=== PATIENT | female | born 1935 ===

== ENCOUNTER 2017-07-03 14:48 | Inpatient (IN) | payer OTHER ==
[2017-07-03] MEDS: SOD CHLORIDE 0.9% 1,000 ML IV ×5 (15:28→23:00)
[2017-07-03 15:33] LABS: ADD MAN DIFF? NO
[2017-07-03 15:37] LABS: BASOPHIL # 0.1 10^3/ul (0.0-0.1); BASOPHILS % 0.4 % (0.0-2.0); EOSINOPHILS # 0.2 10^3/ul (0.0-0.5); EOSINOPHILS % 1.2 % (0.0-7.0); HEMATOCRIT 35.3 % (37.0-47.0); HEMOGLOBIN 10.7 g/dl (12.0-16.0); LYMPHOCYTES # 1.4 10^3/ul (0.8-2.9); LYMPHOCYTES % 8.2 % (15.0-51.0); MEAN CORPUSCULAR HGB CONC 30.3 g/dl (32.0-37.0); MEAN CORPUSCULAR VOLUME 88.9 fl (82.0-101.0); MEAN PLATELET VOLUME 9.6 fl (7.4-10.4); MONOCYTE # 0.7 10^3/ul (0.3-0.9); MONOCYTES % 4.2 % (0.0-11.0); NEUTROPHIL # 14.8 10^3/ul (1.6-7.5); NEUTROPHILS % 85.1 % (39.0-77.0); PLATELET COUNT 521 10^3/UL (140-415); RED BLOOD COUNT 3.97 10^6/ul (4.20-5.40); RED CELL DISTRIBUTION WIDTH 14.1 % (11.5-14.5)
[2017-07-03 15:37] LABS: WHITE BLOOD COUNT 17.4 10^3/ul (4.8-10.8)
[2017-07-03 15:59] LABS: ALANINE AMINOTRANSFERASE 128 IU/L (13-69); ALBUMIN 3.5 g/dl (3.3-4.9); ALBUMIN/GLOBULIN RATIO 0.77; ALKALINE PHOSPHATASE 177 IU/L (42-121); ANION GAP 25 (8-16); ASPARTATE AMINO TRANSFERASE 261 IU/L (15-46); BILIRUBIN,INDIRECT 0.3 mg/dl (0-1.1); BILIRUBIN,TOTAL 0.3 mg/dl (0.2-1.3); BLOOD UREA NITROGEN 54 mg/dl (7-20); CARBON DIOXIDE 22 mmol/L (21-31); CHLORIDE 117 mmol/L (97-110); CREATININE 1.84 mg/dl (0.44-1.00); GLUCOSE 203 mg/dl (70-220); LIPASE 116 U/L (23-300); POTASSIUM 4.7 mmol/L (3.5-5.1); SODIUM 159 mmol/L (135-144)
[2017-07-03 16:00] LABS: PROTIME 18.4 Sec (11.9-14.9); PT RATIO 1.4
[2017-07-03 16:09] LABS: CALCIUM 13.6 mg/dl (8.4-10.2)
[2017-07-03 16:11] LABS: TROPONIN-I 0.034 ng/ml (0.00-0.12)
[2017-07-03 16:35] LABS: ADD UMIC YES; UR ASCORBIC ACID NEGATIVE (NEGATIVE); UR BILIRUBIN (Dip) NEGATIVE (NEGATIVE); UR BLOOD (Dip) NEGATIVE (NEGATIVE); UR CLARITY CLEAR (CLEAR); UR COLOR YELLOW (YELLOW); UR GLUCOSE (Dip) NEGATIVE (NEGATIVE); UR KETONES (Dip) NEGATIVE (NEGATIVE); UR LEUKOCYTE ESTERASE (Dip) NEGATIVE Leu/ul (NEGATIVE); UR NITRITE (Dip) NEGATIVE (NEGATIVE); UR RBC 0 /HPF (0-5); UR SPECIFIC GRAVITY (Dip) 1.019 (1.003-1.030); UR TOTAL PROTEIN (Dip) 1+ mg/dl (NEGATIVE); UR UROBILINOGEN (Dip) NEGATIVE (NEGATIVE); UR WBC 0 /HPF (0-5)
[2017-07-03] MEDS: CEFEPIME 1GM/50 ML (PMX) 50 ML IVPB (16:55)
[2017-07-03] MEDS: VANCOMYCIN 1 GM (PMX) 250 ML IVPB (17:16)
[2017-07-03 17:27] LABS: PARTIAL THROMBOPLASTIN TIME 28.6 Sec (25.0-35.0)
[2017-07-03 17:44] LABS: LACTIC ACID 2.9 mmol/L (0.5-2.0)
[2017-07-03] MEDS ORDERED: CALCITONIN SALMON 400 UNITS INJ SC (19:00)
[2017-07-03] MEDS ORDERED: GUAIFENESIN 20 MG/ML 5ML CUP PO (19:30)
[2017-07-03] MEDS ORDERED: BISACODYL (EC) 5 MG TAB PO (19:30)
[2017-07-03] MEDS ORDERED: LORAZEPAM 1 MG TAB PO (19:30)
[2017-07-03] MEDS ORDERED: ATROPINE 1% 3.5 GM OPH OINT BOTH EYES (19:30)
[2017-07-03] MEDS ORDERED: NACL 0.9% 3 ML SYG IV (19:30)
[2017-07-03] MEDS ORDERED: morphine LIQ (10 MG/5 ML) CUP PO (19:30)
[2017-07-03] MEDS ORDERED: HYDROCODONE/APAP (5/325) TAB PO (19:30)
[2017-07-03] MEDS ORDERED: DOCUSATE SODIUM 100 MG CAP PO (19:30)
[2017-07-03] MEDS ORDERED: BISACODYL 10 MG SUPP PR ×2 (19:30)
[2017-07-03] MEDS ORDERED: MAGNESIUM HYDROXIDE 30ML CUP PO (19:30)
[2017-07-03] MEDS ORDERED: IBUPROFEN 600 MG TAB PO (19:30)
[2017-07-03] MEDS ORDERED: PROCHLORPERAZINE 5 MG TAB PO (19:30)
[2017-07-03] MEDS ORDERED: ACETAMINOPHEN 650 MG SUPP PR (19:30)
[2017-07-03 20:07] LABS: LACTIC ACID 3.7 mmol/L (0.5-2.0)
[2017-07-03] MEDS: ALBUTEROL/IPRATROPIUM (NEB) 3 ML AMP INH (20:26)
[2017-07-03] MEDS: PAMIDRONATE 90 MG in SOD CHLORIDE 0.9% 500 ML IV (20:40)
[2017-07-03] MEDS: morphine 2 MG INJ IV (21:44)
[2017-07-03 22:52] LABS: LACTIC ACID 3.2 mmol/L (0.5-2.0)
[2017-07-04] MEDS: SOD CHLORIDE 0.9% 1,000 ML IV ×2 (03:25→07:15)
[2017-07-04] MEDS: morphine 2 MG INJ IV (03:43)
[2017-07-04] MEDS: SOD CHLORIDE 0.9% 250 ML IV (05:11)
[2017-07-04] MEDS ORDERED: LEVOFLOXACIN 750 MG TABLET PO (06:00)
[2017-07-04] MEDS: LEVOFLOXACIN 750MG/D5W (PMX) 150 ML IVPB (06:16)
[2017-07-04 06:25] LABS: WHITE BLOOD COUNT 6.4 10^3/ul (4.8-10.8)
[2017-07-04 06:25] LABS: ABNORMAL IP MESSAGE 1; HEMATOCRIT 25.7 % (37.0-47.0); HEMOGLOBIN 7.6 g/dl (12.0-16.0); MEAN CORPUSCULAR HEMOGLOBIN 26.3 pg (29.0-33.0); MEAN CORPUSCULAR HGB CONC 29.6 g/dl (32.0-37.0); MEAN CORPUSCULAR VOLUME 88.9 fl (82.0-101.0); MEAN PLATELET VOLUME 9.6 fl (7.4-10.4); PLATELET COUNT 373 10^3/UL (140-415); RED BLOOD COUNT 2.89 10^6/ul (4.20-5.40); RED CELL DISTRIBUTION WIDTH 14.4 % (11.5-14.5)
[2017-07-04 06:28] LABS: POSITIVE DIFF @See below
[2017-07-04 06:29] LABS: ADD MAN DIFF? YES
[2017-07-04 06:48] LABS: ANION GAP 15 (8-16); BLOOD UREA NITROGEN 56 mg/dl (7-20); CALCIUM 10.4 mg/dl (8.4-10.2); CARBON DIOXIDE 19 mmol/L (21-31); CHLORIDE 128 mmol/L (97-110); CREATININE 1.41 mg/dl (0.44-1.00); GLUCOSE 136 mg/dl (70-220); MAGNESIUM 2.3 mg/dl (1.7-2.5); SODIUM 158 mmol/L (135-144)
[2017-07-04] MEDS: ALBUTEROL/IPRATROPIUM (NEB) 3 ML AMP INH ×3 (08:00→16:00)
[2017-07-04] MEDS ORDERED: VANCOMYCIN IV PER PHARMACY XX (08:30)
[2017-07-04] MEDS: NORepinephrine 8MG/250 ML (PMX 250 ML IV (08:45)
[2017-07-04] MEDS: PIPER-TAZO 2.25 GM (PMX) 50 ML IVPB ×3 (08:45→18:22)
[2017-07-04] MEDS ORDERED: NORepinephrine 8MG/250 ML (PMX 250 ML (08:47)
[2017-07-04] MEDS: ENOXAPARIN 30 MG/0.3 ML SYG SC (09:00)
[2017-07-04] MEDS ORDERED: NORepinephrine 8MG/250 ML (PMX 250 ML IV (09:00)
[2017-07-04 09:03] LABS: AADO2 Arterial 211.7 mmHg (7.0-24.0); Arterial Base Excess -10.8 mmol/L (-3.0-3); Arterial HCO3 14.9 mmol/L (22.0-26.0); Arterial pCO2 33.1 mmhg (35-45); MODE MASK - SIMPLE; Site LB
[2017-07-04 09:21] LABS: ANISOCYTOSIS 1+ (0-0); BAND NEUTROPHILS #M 3.6 10^3/ul (0.0-0.6); BAND NEUTROPHILS % (M) 57 % (0-4); BURR CELLS 3+ (0-0); EOSINOPHILS % (M) 2 % (0-7); GIANT THROMBO% (M) 1 % (0-0); LYMPHOCYTES #M 0.5 10^3/ul (0.8-2.9); LYMPHOCYTES % (M) 9 % (15-51); METAMYELOCYTES #M 0.1 10^3/ul (0.0-0.0); METAMYELOCYTES %M 3 % (0-0); MONOCYTE #M 0.1 10^3/ul (0.3-0.9); MONOCYTES % (M) 3 % (0-11); MYELOCYTES #M 0.1 10^3/ul (0.0-0.0); MYELOCYTES % (M) 3 % (0-0); PLATELET ESTIMATE NORMAL; POIKILOCYTOSIS 3+ (0-0); POLYCHROMASIA 2+ (0-0); PROMYELOCYTES % (M) 1 % (0-0); SEG NEUT #M 1.6 10^3/ul (1.6-7.5); SEGMENTED NEUTROPHILS (M) % 22 % (39-77)
[2017-07-04 09:40] LABS: ABNORMAL IP MESSAGE 1; MEAN CORPUSCULAR HEMOGLOBIN 27.3 pg (29.0-33.0); MEAN CORPUSCULAR VOLUME 90.9 fl (82.0-101.0); MEAN PLATELET VOLUME 9.9 fl (7.4-10.4); PLATELET COUNT 326 10^3/UL (140-415); RED BLOOD COUNT 2.53 10^6/ul (4.20-5.40); RED CELL DISTRIBUTION WIDTH 14.6 % (11.5-14.5)
[2017-07-04 09:40] LABS: WHITE BLOOD COUNT 7.5 10^3/ul (4.8-10.8)
[2017-07-04 09:54] LABS: POSITIVE DIFF @See below
[2017-07-04 09:56] LABS: ADD MAN DIFF? YES; HEMOGLOBIN 6.9 g/dl (12.0-16.0)
[2017-07-04] MEDS: SOD CHLORIDE 0.9% 250 ML IV* (10:04)
[2017-07-04] MEDS: SODIUM BICARBONATE (IV ADD) 100 MEQ in DEXTROSE 5%-0.45% NACL 1,000 ML IV (10:10)
[2017-07-04 10:11] LABS: ANION GAP 15 (8-16); BLOOD UREA NITROGEN 57 mg/dl (7-20); CALCIUM 9.7 mg/dl (8.4-10.2); CARBON DIOXIDE 17 mmol/L (21-31); CHLORIDE 126 mmol/L (97-110); CREATININE 1.38 mg/dl (0.44-1.00); GLUCOSE 118 mg/dl (70-220); PHOSPHORUS 4.6 mg/dl (2.5-4.9); POTASSIUM 4.4 mmol/L (3.5-5.1); SODIUM 154 mmol/L (135-144)
[2017-07-04 10:14] LABS: LACTIC ACID 4.1 mmol/L (0.5-2.0)
[2017-07-04 10:26] LABS: MAGNESIUM 2.2 mg/dl (1.7-2.5)
[2017-07-04 10:45] LABS: ANISOCYTOSIS 1+ (0-0); BAND NEUTROPHILS #M 4.8 10^3/ul (0.0-0.6); BAND NEUTROPHILS % (M) 64 % (0-4); BURR CELLS 2+ (0-0); EOSINOPHILS % (M) 3 % (0-7); HYPOCHROMASIA 1+ (0-0); LYMPHOCYTES #M 0.6 10^3/ul (0.8-2.9); LYMPHOCYTES % (M) 8 % (15-51); METAMYELOCYTES #M 0.5 10^3/ul (0.0-0.0); METAMYELOCYTES %M 7 % (0-0); MONOCYTES % (M) 1 % (0-11); PLATELET ESTIMATE NORMAL; POIKILOCYTOSIS 2+ (0-0); POLYCHROMASIA 1+ (0-0); SEG NEUT #M 1.6 10^3/ul (1.6-7.5); SEGMENTED NEUTROPHILS (M) % 17 % (39-77); SMUDGE%M 5 % (0-0)
[2017-07-04 10:52] LABS: IMMEDIATE SPIN CROSSMATCH 1 3
[2017-07-04] MEDS: LIDOCAINE 1% (MPF) 5 ML VIAL SC (12:30)
[2017-07-04] MEDS: SOD CHLORIDE 0.9% 100 ML (12:50)
[2017-07-04] MEDS: VANCOMYCIN 750 MG in DEXTROSE 5% 150 ML IVPB (14:00)
[2017-07-04 14:01] LABS: AADO2 Arterial 94.9 mmHg (7.0-24.0); Arterial Base Excess -9.4 mmol/L (-3.0-3); Arterial HCO3 15.5 mmol/L (22.0-26.0); Arterial pCO2 31.2 mmhg (35-45); MODE NASAL CANNULA; Site LB
[2017-07-04 14:17] LABS: ALANINE AMINOTRANSFERASE 128 IU/L (13-69); ALKALINE PHOSPHATASE 86 IU/L (42-121); ASPARTATE AMINO TRANSFERASE 226 IU/L (15-46); TOTAL PROTEIN 5.3 g/dl (6.1-8.1)
[2017-07-04 16:44] LABS: LACTIC ACID 2.6 mmol/L (0.5-2.0)
[2017-07-04] MEDS ORDERED: ALBUTEROL/IPRATROPIUM (NEB) 3 ML AMP INH ×2 (17:00)
[2017-07-04] MEDS: PHENYLephrine 20MG IN 250 ML 250 ML IV ×2 (18:16→21:34)
[2017-07-05] MEDS: PIPER-TAZO 2.25 GM (PMX) 50 ML IVPB ×4 (00:06→17:39)
[2017-07-05] MEDS: PHENYLephrine 40 MG in DEXTROSE 5% 496 ML IV ×3 (01:59→21:27)
[2017-07-05 05:52] LABS: BLOOD UREA NITROGEN 65 mg/dl (7-20)
[2017-07-05 05:52] LABS: CREATININE 1.57 mg/dl (0.44-1.00)
[2017-07-05 06:23] LABS: LACTIC ACID 3.5 mmol/L (0.5-2.0)
[2017-07-05] MEDS ORDERED: GLUCAGON 1 MG INJ IM (08:00)
[2017-07-05] MEDS ORDERED: GLUCOSE GEL 15 GRAM TUBE BUCCAL (08:00)
[2017-07-05] MEDS ORDERED: GLUCOSE GEL 15 GRAM TUBE PO ×2 (08:00)
[2017-07-05] MEDS ORDERED: DEXTROSE 50% 50 ML SYRINGE IV ×2 (08:00)
[2017-07-05 08:49] LABS: AADO2 Arterial 69.4 mmHg (7.0-24.0); Allen Test ACCEPTAB; Arterial Base Excess -10.6 mmol/L (-3.0-3); Arterial Blood Gas Oxygen Sat 95.8 mmHG (95.0-100.0); Arterial COHb 2.1 % (0.0-3.0); Arterial Fraction of Oxyhgb 93.6 % (93.0-99.0); Arterial HCO3 14.7 mmol/L (22.0-26.0); Arterial MetHb 0.2 % (0.0-1.5); Arterial pCO2 30.9 mmhg (35-45); MODE NASAL CANNULA; Site Right Brachial
[2017-07-05] MEDS: ENOXAPARIN 30 MG/0.3 ML SYG SC (09:00)
[2017-07-05] MEDS: SODIUM BICARBONATE (IV ADD) 100 MEQ in DEXTROSE 5%-0.45% NACL 1,000 ML IV ×2 (10:02→22:12)
[2017-07-05] MEDS: INSULIN ASPART [NOVOLOG] 3 ML PEN SC ×4 (10:22→22:15)
[2017-07-05 10:26] LABS: WHITE BLOOD COUNT 9.6 10^3/ul (4.8-10.8)
[2017-07-05 10:26] LABS: ABNORMAL IP MESSAGE 1; HEMATOCRIT 26.4 % (37.0-47.0); HEMOGLOBIN 8.3 g/dl (12.0-16.0); MEAN CORPUSCULAR HEMOGLOBIN 27.4 pg (29.0-33.0); MEAN CORPUSCULAR HGB CONC 31.4 g/dl (32.0-37.0); MEAN CORPUSCULAR VOLUME 87.1 fl (82.0-101.0); MEAN PLATELET VOLUME 10.1 fl (7.4-10.4); NUCLEATED RED BLOOD CELLS% 1.3 /100WBC (0.0-0.0); PLATELET COUNT 240 10^3/UL (140-415); RED BLOOD COUNT 3.03 10^6/ul (4.20-5.40); RED CELL DISTRIBUTION WIDTH 15.8 % (11.5-14.5)
[2017-07-05 10:27] LABS: ADD MAN DIFF? YES; POSITIVE DIFF @See below
[2017-07-05 12:01] LABS: ANISOCYTOSIS 1+ (0-0); BAND NEUTROPHILS #M 5.3 10^3/ul (0.0-0.6); BAND NEUTROPHILS % (M) 56 % (0-4); BURR CELLS 2+ (0-0); EOSINOPHILS % (M) 5 % (0-7); ERYTHROBLAST% (NRBC) (M) 4 % (0-0); GIANT THROMBO% (M) 1 % (0-0); LYMPHOCYTES #M 1.3 10^3/ul (0.8-2.9); LYMPHOCYTES % (M) 14 % (15-51); METAMYELOCYTES #M 0.2 10^3/ul (0.0-0.0); METAMYELOCYTES %M 3 % (0-0); MICROCYTOSIS 1+ (0-0); MONOCYTE #M 0.2 10^3/ul (0.3-0.9); MONOCYTES % (M) 3 % (0-11); PLATELET ESTIMATE NORMAL; POIKILOCYTOSIS 2+ (0-0); POLYCHROMASIA 3+ (0-0); REACTIVE LYMPHOCYTES% (M) 1 % (0-0); SEG NEUT #M 2.2 10^3/ul (1.6-7.5); SEGMENTED NEUTROPHILS (M) % 18 % (39-77); SMUDGE%M 4 % (0-0)
[2017-07-05] MEDS: morphine 2 MG INJ IV (13:58)
[2017-07-05] MEDS: VANCOMYCIN 750 MG in DEXTROSE 5% 150 ML IVPB (13:59)
[2017-07-05 18:07] LABS: PTH CALCIUM 8.1 mg/dL (8.6-10.4)
[2017-07-05] MEDS: INSULIN GLARGINE [LANtus] 3 ML PEN SC (22:14)
[2017-07-06] MEDS: PIPER-TAZO 2.25 GM (PMX) 50 ML IVPB ×4 (01:00→18:01)
[2017-07-06] MEDS: INSULIN ASPART [NOVOLOG] 3 ML PEN SC ×6 (01:19→20:29)
[2017-07-06] MEDS: ACCU-CHEK XX (01:20)
[2017-07-06 03:24] LABS: SODIUM,URINE RANDOM 37 mmol/L (30-90)
[2017-07-06 03:24] LABS: CREATININE,URINE RANDOM 37.15 mg/dl (20-320)
[2017-07-06 05:45] LABS: ABNORMAL IP MESSAGE 1; HEMATOCRIT 28.7 % (37.0-47.0); HEMOGLOBIN 8.9 g/dl (12.0-16.0); MEAN PLATELET VOLUME 10.6 fl (7.4-10.4); NUCLEATED RED BLOOD CELLS% 0.5 /100WBC (0.0-0.0); PLATELET COUNT 196 10^3/UL (140-415); RED CELL DISTRIBUTION WIDTH 15.7 % (11.5-14.5)
[2017-07-06 05:45] LABS: WHITE BLOOD COUNT 15.2 10^3/ul (4.8-10.8)
[2017-07-06 05:49] LABS: ADD MAN DIFF? YES; POSITIVE DIFF @See below
[2017-07-06 06:11] LABS: ANION GAP 13 (8-16); BLOOD UREA NITROGEN 60 mg/dl (7-20); CALCIUM 8.2 mg/dl (8.4-10.2); CARBON DIOXIDE 22 mmol/L (21-31); CHLORIDE 121 mmol/L (97-110); CREATININE 1.17 mg/dl (0.44-1.00); GLUCOSE 206 mg/dl (70-220); PHOSPHORUS 2.6 mg/dl (2.5-4.9); POTASSIUM 3.2 mmol/L (3.5-5.1); SODIUM 153 mmol/L (135-144)
[2017-07-06 06:22] LABS: LACTIC ACID 3.8 mmol/L (0.5-2.0)
[2017-07-06 07:08] LABS: BAND NEUTROPHILS #M 4.7 10^3/ul (0.0-0.6); BAND NEUTROPHILS % (M) 31 % (0-4); BURR CELLS 1+ (0-0); EOSINOPHILS % (M) 9 % (0-7); ERYTHROBLAST% (NRBC) (M) 2 % (0-0); GIANT THROMBO% (M) 1 % (0-0); LYMPHOCYTES #M 1.8 10^3/ul (0.8-2.9); LYMPHOCYTES % (M) 12 % (15-51); MONOCYTE #M 0.1 10^3/ul (0.3-0.9); MONOCYTES % (M) 1 % (0-11); MYELOCYTES #M 0.3 10^3/ul (0.0-0.0); MYELOCYTES % (M) 2 % (0-0); PLATELET ESTIMATE NORMAL; POIKILOCYTOSIS 1+ (0-0); POLYCHROMASIA 3+ (0-0); SEG NEUT #M 7.7 10^3/ul (1.6-7.5); SEGMENTED NEUTROPHILS (M) % 46 % (39-77); SMUDGE%M 9 % (0-0)
[2017-07-06] MEDS: SODIUM BICARBONATE (IV ADD) 100 MEQ in DEXTROSE 5%-0.45% NACL 1,000 ML IV ×2 (08:00→10:08)
[2017-07-06 08:54] LABS: AADO2 Arterial 90.6 mmHg (7.0-24.0); Allen Test ACCEPTAB; Arterial Base Excess -5.7 mmol/L (-3.0-3); Arterial HCO3 19.3 mmol/L (22.0-26.0); Arterial pCO2 36.3 mmhg (35-45); MODE NASAL CANNULA; Site Left Radial
[2017-07-06] MEDS: PHENYLephrine 40 MG in DEXTROSE 5% 496 ML IV ×2 (09:53→18:54)
[2017-07-06 10:43] LABS: OCCULT BLOOD STOOL NEGATIVE (NEGATIVE)
[2017-07-06] MEDS: HYDROCORTISONE 100 MG INJ IV ×2 (15:00→21:46)
[2017-07-06] MEDS: POTASSIUM CHLORIDE 100 ML IVPB ×2 (15:34→18:01)
[2017-07-06] MEDS: morphine 2 MG INJ IV (16:24)
[2017-07-06] MEDS: INSULIN GLARGINE [LANtus] 3 ML PEN SC (20:28)
[2017-07-06 21:37] LABS: AADO2 Arterial 50.4 mmHg (7.0-24.0); Allen Test ACCEPTAB; Arterial Base Excess -2.6 mmol/L (-3.0-3); Arterial Blood Gas Oxygen Sat 97.7 mmHG (95.0-100.0); Arterial COHb 0.6 % (0.0-3.0); Arterial HCO3 22.6 mmol/L (22.0-26.0); Arterial MetHb 0.1 % (0.0-1.5); Arterial Total Hemglobin 10.7 g/dl (12.0-18.0); MODE NASAL CANNULA; Site Right Radial
[2017-07-07] MEDS: PIPER-TAZO 2.25 GM (PMX) 50 ML IVPB ×5 (00:20→23:46)
[2017-07-07] MEDS: INSULIN ASPART [NOVOLOG] 3 ML PEN SC ×6 (00:33→21:15)
[2017-07-07] MEDS: ACCU-CHEK XX (02:00)
[2017-07-07] MEDS: PHENYLephrine 40 MG in DEXTROSE 5% 496 ML IV ×2 (03:11→14:25)
[2017-07-07 05:42] LABS: WHITE BLOOD COUNT 13.4 10^3/ul (4.8-10.8)
[2017-07-07 05:42] LABS: ABNORMAL IP MESSAGE 1; HEMATOCRIT 28.8 % (37.0-47.0); HEMOGLOBIN 9.1 g/dl (12.0-16.0); MEAN CORPUSCULAR HEMOGLOBIN 27.2 pg (29.0-33.0); MEAN CORPUSCULAR HGB CONC 31.6 g/dl (32.0-37.0); MEAN PLATELET VOLUME 10.4 fl (7.4-10.4); NUCLEATED RED BLOOD CELLS% 0.3 /100WBC (0.0-0.0); PLATELET COUNT 114 10^3/UL (140-415); RED BLOOD COUNT 3.35 10^6/ul (4.20-5.40); RED CELL DISTRIBUTION WIDTH 15.8 % (11.5-14.5)
[2017-07-07 05:43] LABS: AADO2 Arterial 89.5 mmHg (7.0-24.0); Allen Test ACCEPTAB; Arterial Base Excess -3.9 mmol/L (-3.0-3); Arterial Blood Gas Oxygen Sat 96.5 mmHG (95.0-100.0); Arterial COHb 1.3 % (0.0-3.0); Arterial HCO3 18.6 mmol/L (22.0-26.0); Arterial MetHb 0.3 % (0.0-1.5); Arterial pCO2 27.1 mmhg (35-45); MODE NASAL CANNULA; Site Right Radial
[2017-07-07 05:52] LABS: POSITIVE DIFF @See below
[2017-07-07 05:53] LABS: ADD MAN DIFF? YES
[2017-07-07] MEDS: HYDROCORTISONE 100 MG INJ IV ×3 (05:59→23:46)
[2017-07-07 06:07] LABS: ALANINE AMINOTRANSFERASE 93 IU/L (13-69); ALBUMIN 1.6 g/dl (3.3-4.9); ALBUMIN/GLOBULIN RATIO 0.59; ALKALINE PHOSPHATASE 140 IU/L (42-121); ANION GAP 12 (8-16); ASPARTATE AMINO TRANSFERASE 125 IU/L (15-46); BLOOD UREA NITROGEN 54 mg/dl (7-20); CALCIUM 7.8 mg/dl (8.4-10.2); CARBON DIOXIDE 23 mmol/L (21-31); CHLORIDE 116 mmol/L (97-110); CREATININE 1.16 mg/dl (0.44-1.00); GLUCOSE 164 mg/dl (70-220); PHOSPHORUS 2.3 mg/dl (2.5-4.9); POTASSIUM 3.9 mmol/L (3.5-5.1); SODIUM 147 mmol/L (135-144); TOTAL PROTEIN 4.3 g/dl (6.1-8.1)
[2017-07-07 06:08] LABS: LACTIC ACID 3.3 mmol/L (0.5-2.0)
[2017-07-07 07:45] LABS: ANISOCYTOSIS 1+ (0-0); BAND NEUTROPHILS #M 1.3 10^3/ul (0.0-0.6); BAND NEUTROPHILS % (M) 10 % (0-4); EOSINOPHILS % (M) 1 % (0-7); ERYTHROBLAST% (NRBC) (M) 1 % (0-0); HYPOCHROMASIA 1+ (0-0); LYMPHOCYTES #M 1.6 10^3/ul (0.8-2.9); LYMPHOCYTES % (M) 12 % (15-51); METAMYELOCYTES #M 0.1 10^3/ul (0.0-0.0); METAMYELOCYTES %M 1 % (0-0); MONOCYTE #M 0.2 10^3/ul (0.3-0.9); MONOCYTES % (M) 2 % (0-11); OVALOCYTES 1+ (0-0); PLATELET ESTIMATE DECREASED; POIKILOCYTOSIS 1+ (0-0); POLYCHROMASIA 1+ (0-0); SEG NEUT #M 10.1 10^3/ul (1.6-7.5); SEGMENTED NEUTROPHILS (M) % 74 % (39-77); SMUDGE%M 1 % (0-0)
[2017-07-07] MEDS: INSULIN GLARGINE [LANtus] 3 ML PEN SC (21:14)
[2017-07-08] MEDS: ACCU-CHEK XX (02:00)
[2017-07-08] MEDS: INSULIN ASPART [NOVOLOG] 3 ML PEN SC ×6 (03:23→21:00)
[2017-07-08 05:18] LABS: AADO2 Arterial 89.4 mmHg (7.0-24.0); Allen Test ACCEPTAB; Arterial Base Excess -2.7 mmol/L (-3.0-3); Arterial Blood Gas Oxygen Sat 94.2 mmHG (95.0-100.0); Arterial COHb 1.1 % (0.0-3.0); Arterial Fraction of Oxyhgb 92.9 % (93.0-99.0); Arterial HCO3 20.2 mmol/L (22.0-26.0); Arterial MetHb 0.3 % (0.0-1.5); Arterial Total Hemglobin 11.1 g/dl (12.0-18.0); Arterial pCO2 28.8 mmhg (35-45); MODE NASAL CANNULA; Site Right Radial
[2017-07-08] MEDS: HYDROCORTISONE 100 MG INJ IV ×3 (05:55→21:41)
[2017-07-08] MEDS: PIPER-TAZO 2.25 GM (PMX) 50 ML IVPB ×4 (05:55→23:56)
[2017-07-08 06:38] LABS: ABNORMAL IP MESSAGE 1; HEMATOCRIT 31.2 % (37.0-47.0); HEMOGLOBIN 9.9 g/dl (12.0-16.0); MEAN CORPUSCULAR HEMOGLOBIN 26.5 pg (29.0-33.0); MEAN CORPUSCULAR HGB CONC 31.7 g/dl (32.0-37.0); MEAN CORPUSCULAR VOLUME 83.6 fl (82.0-101.0); MEAN PLATELET VOLUME 11.4 fl (7.4-10.4); NUCLEATED RED BLOOD CELLS% 0.3 /100WBC (0.0-0.0); PLATELET COUNT 66 10^3/UL (140-415); RED BLOOD COUNT 3.73 10^6/ul (4.20-5.40); RED CELL DISTRIBUTION WIDTH 15.9 % (11.5-14.5)
[2017-07-08 06:48] LABS: ADD MAN DIFF? YES; POSITIVE DIFF @See below
[2017-07-08 07:25] LABS: LACTIC ACID 2.6 mmol/L (0.5-2.0)
[2017-07-08 08:19] LABS: ALANINE AMINOTRANSFERASE 76 IU/L (13-69); ALBUMIN 2.1 g/dl (3.3-4.9); ALKALINE PHOSPHATASE 190 IU/L (42-121); ANION GAP 12 (8-16); ASPARTATE AMINO TRANSFERASE 113 IU/L (15-46); BLOOD UREA NITROGEN 63 mg/dl (7-20); CALCIUM 7.9 mg/dl (8.4-10.2); CARBON DIOXIDE 23 mmol/L (21-31); CHLORIDE 111 mmol/L (97-110); CREATININE 1.18 mg/dl (0.44-1.00); GLUCOSE 183 mg/dl (70-220); POTASSIUM 3.7 mmol/L (3.5-5.1); SODIUM 142 mmol/L (135-144); TOTAL PROTEIN 5.6 g/dl (6.1-8.1)
[2017-07-08] MEDS: SOD CHLORIDE 0.9% 1,000 ML IV ×2 (09:09→23:35)
[2017-07-08 10:10] LABS: BAND NEUTROPHILS #M 2.6 10^3/ul (0.0-0.6); BAND NEUTROPHILS % (M) 24 % (0-4); GIANT THROMBO% (M) 2 % (0-0); HYPOCHROMASIA 1+ (0-0); LYMPHOCYTES #M 0.6 10^3/ul (0.8-2.9); LYMPHOCYTES % (M) 6 % (15-51); MONOCYTE #M 0.2 10^3/ul (0.3-0.9); MONOCYTES % (M) 2 % (0-11); MYELOCYTES #M 0.1 10^3/ul (0.0-0.0); MYELOCYTES % (M) 1 % (0-0); PLATELET ESTIMATE NORMAL; POLYCHROMASIA 1+ (0-0); SEG NEUT #M 7.7 10^3/ul (1.6-7.5); SEGMENTED NEUTROPHILS (M) % 67 % (39-77); SMUDGE%M 9 % (0-0); TOXIC GRANULATION 1+ (0-0)
[2017-07-08] MEDS: INSULIN GLARGINE [LANtus] 3 ML PEN SC (23:37)
[2017-07-09] MEDS: INSULIN ASPART [NOVOLOG] 3 ML PEN SC ×6 (01:51→21:33)
[2017-07-09] MEDS: ACCU-CHEK XX (02:06)
[2017-07-09] MEDS: FUROSEMIDE 20 MG TAB NGT (04:28)
[2017-07-09] MEDS: SOD CHLORIDE 0.9% 1,000 ML IV (04:32)
[2017-07-09] MEDS: PIPER-TAZO 2.25 GM (PMX) 50 ML IVPB ×2 (05:12→13:17)
[2017-07-09] MEDS: HYDROCORTISONE 100 MG INJ IV ×3 (05:12→22:48)
[2017-07-09 07:41] LABS: PTH INTACT 30 pg/mL (14-64)
[2017-07-09 11:07] LABS: WHITE BLOOD COUNT 17.7 10^3/ul (4.8-10.8)
[2017-07-09 11:07] LABS: ABNORMAL IP MESSAGE 1; HEMATOCRIT 31.9 % (37.0-47.0); HEMOGLOBIN 10.1 g/dl (12.0-16.0); MEAN CORPUSCULAR HEMOGLOBIN 26.9 pg (29.0-33.0); MEAN CORPUSCULAR HGB CONC 31.7 g/dl (32.0-37.0); MEAN CORPUSCULAR VOLUME 84.8 fl (82.0-101.0); MEAN PLATELET VOLUME 11.3 fl (7.4-10.4); NUCLEATED RED BLOOD CELLS% 0.4 /100WBC (0.0-0.0); PLATELET COUNT 54 10^3/UL (140-415); RED BLOOD COUNT 3.76 10^6/ul (4.20-5.40); RED CELL DISTRIBUTION WIDTH 16.4 % (11.5-14.5)
[2017-07-09 11:12] LABS: ADD MAN DIFF? YES; POSITIVE DIFF @See below
[2017-07-09 11:33] LABS: ANION GAP 14 (8-16); BLOOD UREA NITROGEN 86 mg/dl (7-20); CALCIUM 7.3 mg/dl (8.4-10.2); CARBON DIOXIDE 20 mmol/L (21-31); CHLORIDE 116 mmol/L (97-110); GLUCOSE 219 mg/dl (70-220); POTASSIUM 3.9 mmol/L (3.5-5.1); SODIUM 146 mmol/L (135-144)
[2017-07-09 13:31] LABS: ANISOCYTOSIS 1+ (0-0); BAND NEUTROPHILS #M 3.7 10^3/ul (0.0-0.6); BAND NEUTROPHILS % (M) 21 % (0-4); GIANT THROMBO% (M) 2 % (0-0); LYMPHOCYTES #M 0.3 10^3/ul (0.8-2.9); LYMPHOCYTES % (M) 2 % (15-51); MICROCYTOSIS 1+ (0-0); MONOCYTE #M 0.7 10^3/ul (0.3-0.9); MONOCYTES % (M) 4 % (0-11); PLATELET ESTIMATE SIG DECREASED; POIKILOCYTOSIS 2+ (0-0); POLYCHROMASIA 1+ (0-0); SEG NEUT #M 13.6 10^3/ul (1.6-7.5); SEGMENTED NEUTROPHILS (M) % 73 % (39-77); SMUDGE%M 9 % (0-0)
[2017-07-09] MEDS: BALSAM PERU/CASTOR OIL 60 GM TUBE TOP ×2 (14:31→21:30)
[2017-07-09] MEDS: INSULIN GLARGINE [LANtus] 3 ML PEN SC (21:36)
[2017-07-10] MEDS: SOD CHLORIDE 0.9% 1,000 ML IV ×2 (00:47→13:26)
[2017-07-10] MEDS: INSULIN ASPART [NOVOLOG] 3 ML PEN SC ×6 (00:54→20:26)
[2017-07-10] MEDS: ACCU-CHEK XX (00:56)
[2017-07-10] MEDS: HYDROCORTISONE 100 MG INJ IV ×3 (05:02→21:02)
[2017-07-10] MEDS: morphine 2 MG INJ IV (05:45)
[2017-07-10] MEDS: BALSAM PERU/CASTOR OIL 60 GM TUBE TOP ×2 (09:00→20:26)
[2017-07-10] MEDS: INSULIN GLARGINE [LANtus] 3 ML PEN SC (20:24)
[2017-07-11] MEDS: INSULIN ASPART [NOVOLOG] 3 ML PEN SC ×4 (01:02→13:01)
[2017-07-11] MEDS: ACCU-CHEK XX (01:30)
[2017-07-11] MEDS: SOD CHLORIDE 0.9% 1,000 ML IV (03:56)
[2017-07-11] MEDS: HYDROCORTISONE 100 MG INJ IV ×2 (05:49→14:29)
[2017-07-11] MEDS: BALSAM PERU/CASTOR OIL 60 GM TUBE TOP (09:02)
== END 2017-07-11 17:15 | disposition expired | DRG 871 ==
LOC: TEL 07-08 13:00 → ICU 21:08 → E/R 14:48 → MS4 18:15
PROC: 02HV33Z Insertion of Infusion Device into Superior Vena Cava, Percutaneous Approach (ICD-10-PCS; principal; 2017-07-04)
PROC: 30233N1 Transfusion of Nonautologous Red Blood Cells into Peripheral Vein, Percutaneous Approach (ICD-10-PCS; 2017-07-04)
DX: A41.9 Sepsis, unspecified organism (principal); G93.41 Metabolic encephalopathy; R65.21 Severe sepsis with septic shock; J69.0 Pneumonitis due to inhalation of food and vomit; J96.01 Acute respiratory failure with hypoxia; C34.90 Malignant neoplasm of unspecified part of unspecified bronchus or lung; C78.7 Secondary malignant neoplasm of liver and intrahepatic bile duct; C79.51 Secondary malignant neoplasm of bone; E87.0 Hyperosmolality and hypernatremia; E87.2 Acidosis; D62 Acute posthemorrhagic anemia; N17.9 Acute kidney failure, unspecified; N18.9 Chronic kidney disease, unspecified; D63.0 Anemia in neoplastic disease; E83.52 Hypercalcemia; I46.8 Cardiac arrest due to other underlying condition; R73.9 Hyperglycemia, unspecified; R62.7 Adult failure to thrive; Z85.51 Personal history of malignant neoplasm of bladder; Z66 Do not resuscitate
CPT/HCPCS: 36415; 36430; 36569; 36600; 70450; 71045; 74176; 76705; 76937; 80048; 80053; 80076; 81001; 82270; 82306; 82540; 82565; 82652; 82803; 82962; 83605; 83690; 83735; 83970; 84100; 84155; 84300; 84443; 84484; 84520; 85025; 85610; 85730; 86644; 86850; 86900; 86901; 86920; 87040; 87081; 87086; 93005; 94664; 96374; 96375; 99291-25; J2430